=== PATIENT | female | born 1995 | race Caucasian/White ===

== ENCOUNTER 2017-05-31 00:02 | Outpatient (CLI) | payer OTHER ==
[~2017-05-31] VITALS: Ht 165.1 cm; Wt 76.2 kg
[~2017-05-31 00:02] MED LIST: HYDR-3419 PO
[2017-05-31] MEDS ORDERED: PRENTAB26 PO (01:51)
[2017-05-31] MEDS ORDERED: SERT50TA PO (01:51)
[2017-05-31 01:53] VITALS: Ht 165.1 cm; Wt 76.2 kg
--- NOTE | 2017-06-03 12:33 | EDITING REQUIRED CODING QUERY ---
DIAGNOSIS NEEDED To promote full compliance with coding requirements relating to patient care, physician participation is requested in all cases of professional fee coder uncertainty. Please assist us with the question(s) below: Coding Question: The patient received care in labor and delivery on 05/31/17 as noted within the record. Please document the diagnosis that is being addressed by the medication/treatment. Provider Response: DIAGNOSIS: Labor check WEEKS OF GESTATION: 37 weeks Thank you for your assistance, Roz Hubbard - Sales Promotion Coordinator
[2017-06-30] MEDS ORDERED: NIFE10CA20 PO (16:55)
[2017-07-09] MEDS ORDERED: PRC10 PO (07:23)
== END 2017-05-31 00:40 | disposition home or self-care (01) ==
LOC: C.OPB 00:02 → C.LD 00:02 → C.OPB 00:40
PROVIDERS: ATTEND Obstetrics & Gynecology
DX: Z34.83 Encounter for supervision of other normal pregnancy, third trimester (principal); Z3A.37 37 weeks gestation of pregnancy

== ENCOUNTER 2017-06-30 14:00 | Outpatient (CLI) | payer OTHER ==
[~2017-06-30] VITALS: Ht 165.1 cm; Wt 75.0 kg
[~2017-06-30 14:00] MED LIST changes: -HYDR-3419 PO; +PRENTAB26 PO; +SERT50TA PO
[2017-06-30] MEDS ORDERED: NURSING VERBAL MED ORDER ONE ×2 (14:45→16:15)
[2017-06-30] MEDS ORDERED: TERBUTALINE SULFATE 1 MG/ML VIAL ONE (14:47)
[2017-06-30] MEDS ORDERED: LACTATED RINGER'S 1000ML 1,000 ML IV SCH (15:15)
[2017-06-30] MEDS ORDERED: LACTATED RINGER'S 1000ML 500 ML IV SCH (15:15)
[2017-06-30] MEDS ORDERED: NIFEdipine 10 MG CAP PO STA (15:58)
[2017-06-30] MEDS ORDERED: TERBUTALINE SULFATE 1 MG/ML VIAL SQ PRN (16:00)
--- NOTE | 2017-06-30 16:53 | Progress Note ---
Progress Note Date of Service Jun 30, 2017. Progress Note 21 yo Multiparous pt.@34.5 karol foster for PTl FHR; CAT1 Ctx 2-3mins VE; cl/No effacement/-3 Pt received IVF, turb and Procardia ctx completely resolved dsich home on Procardia
[2017-06-30] MEDS ORDERED: NIFE10CA20 PO ×2 (16:55)
--- NOTE | 2017-06-30 16:56 | Discharge Instructions ---
Discharge Instructions Date of Service Jun 30, 2017. Admission Reason for Admission: R/O Labor Discharge Discharge Diagnosis / Problem: labor Discharge Goals Goal(s): Continuing OB care Activity Recommendations Activity Limitations: as noted below ACTIVITY RECOMMENDATIONS: See Labor Sheet. SPECIAL CARE INSTRUCTIONS: Call Doctor if: * Regular contractions every 5 minutes or greater than contractions in one hour. * Bleeding * Water breaks or is leaking * Decreased movement * Fever >100.4 degrees F * Pain not relieved by routine measures or pain medication ordered. FOLLOW UP VISIT: Return to Labor and Delivery on for /call for appointment time . Follow-up Visit with: When: . Current Hospital Diet Patient's current hospital diet: Discharge Diet Recommended Diet: Regular Diet Pending Studies Studies pending at discharge: no Medical Emergencies . Who to Call and When: Medical Emergencies: If at any time you feel your situation is an emergency, please call 911 immediately. . Non-Emergent Contact Non-Emergency issues call your: Specialist . . "Provider Documentation" section prepared by Ken Vaca. . VTE Core Measure Inpt VTE Proph given/why not?: Treatment not indicated
[2017-06-30 17:29] VITALS: Ht 165.1 cm; Wt 75.0 kg
[2017-07-09] MEDS ORDERED: PRC10 PO (07:23)
== END 2017-06-30 17:33 | disposition home or self-care (01) ==
LOC: C.OPB 14:00 → C.LD 14:00 → C.OPB 17:33
PROVIDERS: ATTEND Obstetrics & Gynecology
DX: O60.03 Preterm labor without delivery, third trimester (principal); Z3A.34 34 weeks gestation of pregnancy

== ENCOUNTER 2017-07-06 01:53 | Outpatient (CLI) | payer OTHER ==
[~2017-07-06] VITALS: Ht 165.1 cm; Wt 78.5 kg
[~2017-07-06 01:53] MED LIST changes: +NIFE10CA20 PO
[2017-07-06] MEDS ORDERED: ONDANSETRON INJ 2 MG/ML 2 ML VIAL IV PRN ×2 (02:15→02:30)
[2017-07-06] MEDS ORDERED: LACTATED RINGER'S 1000ML 1,000 ML IV SCH (02:15)
[2017-07-06] MEDS ORDERED: LACTATED RINGER'S 1000ML 500 ML IV ONE (02:15)
[2017-07-06] MEDS ORDERED: ACETAMINOPHEN 325 MG TAB PO PRN (02:15)
[2017-07-06] MEDS: TERBUTALINE SULFATE 1 MG/ML VIAL ONE ×2 (02:21→02:24)
[2017-07-06] MEDS: TERBUTALINE SULFATE 1 MG/ML VIAL SQ PRN ×3 (02:26→04:05)
[2017-07-06] MEDS ORDERED: BUTORPHANOL TARTRATE 1 MG/ML VIAL IV PRN (02:30)
[2017-07-06 02:45] LABS: BASO % 0.1 %; BASO ABS # 0.01 K/uL (0-0.2); EOS % 0.6 %; EOS ABS # 0.07 K/uL (0-0.5); HEMATOCRIT 32.5 % (37-47); HEMOGLOBIN 11.2 g/dL (12.0-16.0); IG# 0.09 K/uL (0.00-0.02); LYMPH % 17.7 %; LYMPH ABS # 2.12 K/uL (1.2-3.4); MEAN CELL VOLUME 95.9 fL (80-100); MEAN CORPUSCULAR HGB CONC 34.5 g/dl (32-36); MEAN PLATELET VOLUME 10.2 fL (7.4-10.4); MONO % 8.9 %; MONO ABS # 1.07 K/uL (0.11-0.59); NEUT % 71.9 %; NEUT ABS # 8.64 K/uL (1.4-6.5); PLATELET COUNT 140 K/uL (130-400); RED CELL DISTRIBUTION WIDTH CV 13.6 % (11.5-14.5); RED CELL DISTRIBUTION WIDTH SD 47.1 fL (36.4-46.3)
[2017-07-06] MEDS ORDERED: NIFEdipine 10 MG CAP PO SCH (04:00)
[2017-07-06 05:45] VITALS: Ht 165.1 cm; Wt 78.5 kg
[2017-07-07] MEDS ORDERED: MAGN400T6 PO (17:39)
[2017-07-07] MEDS ORDERED: DIPH25CA65 PO (17:40)
== END 2017-07-06 07:06 | disposition home or self-care (01) ==
LOC: C.LD 01:53 → C.OPB 01:53
PROVIDERS: ATTEND Obstetrics & Gynecology
DX: O62.9 Abnormality of forces of labor, unspecified (principal); Z3A.00 Weeks of gestation of pregnancy not specified

== ENCOUNTER 2017-07-06 18:57 | Outpatient (CLI) | payer OTHER ==
--- NOTE | 2017-07-06 20:58 | Progress Note ---
Progress Note Date of Service Jul 06, 2017. Progress Note 21 F P2002 at 35.6 weeks seen in L&D for contractions. she was seen previously and has not changed her cervix. Cervix 1-/-3/vertex/posterior/ firm. FHT Cat 1. Will discharge to home not in labor. Advised to stop smoking. Follow up in office,
[2017-07-07] MEDS ORDERED: MAGN400T6 PO (17:39)
[2017-07-07] MEDS ORDERED: DIPH25CA65 PO (17:40)
[2017-07-09] MEDS ORDERED: PRC10 PO (07:23)
== END 2017-07-06 21:17 | disposition home or self-care (01) ==
LOC: C.OPB 18:57 → C.LD 18:57 → C.OPB 21:17
PROVIDERS: ATTEND Obstetrics & Gynecology
DX: O62.9 Abnormality of forces of labor, unspecified (principal); Z3A.35 35 weeks gestation of pregnancy

== ENCOUNTER 2017-07-07 14:58 | Outpatient (CLI) | payer OTHER ==
[2017-07-07] MEDS ORDERED: BUTORPHANOL TARTRATE 1 MG/ML VIAL IV PRN (15:15)
[2017-07-07] MEDS ORDERED: TERBUTALINE SULFATE 1 MG/ML VIAL SQ PRN (15:15)
[2017-07-07] MEDS ORDERED: ONDANSETRON INJ 2 MG/ML 2 ML VIAL IV PRN (15:15)
[2017-07-07] MEDS ORDERED: LACTATED RINGER'S 1000ML 1,000 ML IV SCH (15:30)
[2017-07-07] MEDS ORDERED: LACTATED RINGER'S 1000ML 500 ML IV ONE (15:45)
[2017-07-07] MEDS ORDERED: MAGN400T6 PO (17:39)
[2017-07-07] MEDS ORDERED: DIPH25CA65 PO (17:40)
[2017-07-09] MEDS ORDERED: PRC10 PO (07:23)
== END 2017-07-07 17:55 | disposition home or self-care (01) ==
LOC: C.LD 14:58 → C.OPB 14:58
PROVIDERS: ATTEND Obstetrics & Gynecology
DX: O62.9 Abnormality of forces of labor, unspecified (principal); Z3A.00 Weeks of gestation of pregnancy not specified

== ENCOUNTER 2017-07-08 19:25 | Observation (INO) | payer OTHER ==
[~2017-07-08 19:25] MED LIST changes: +DIPH25CA65 PO; +MAGN400T6 PO; -NIFE10CA20 PO
[2017-07-08] MEDS ORDERED: LACTATED RINGER'S 1000ML 500 ML IV ONE (19:54)
[2017-07-08] MEDS ORDERED: MoRPHine SULFATE 10 MG/ML CARP/VIAL SC STA (19:54)
[2017-07-08] MEDS ORDERED: NIFEdipine 10 MG CAP PO STA (19:54)
[2017-07-08] MEDS ORDERED: ONDANSETRON INJ 2 MG/ML 2 ML VIAL IV PRN (20:00)
[2017-07-08] MEDS ORDERED: PROMETHAZINE HCL INJ 25 MG in SODIUM CHLORIDE 0.9% 50ML 50 ML IV PRN (20:00)
[2017-07-08] MEDS ORDERED: IV FLUIDS COMPLETED PRN (21:00)
[2017-07-08] MEDS: LACTATED RINGER'S 1000ML 1,000 ML IV SCH (23:27)
[2017-07-08] MEDS: NIFEdipine 10 MG CAP PO SCH (23:30)
[2017-07-08] MEDS ORDERED: MoRPHine SULFATE 4 MG/ML 1 ML CARP\\VIAL SC PRN (23:59)
[2017-07-09] MEDS: NIFEdipine 10 MG CAP PO SCH (03:32)
[2017-07-09] MEDS: LACTATED RINGER'S 1000ML 1,000 ML IV SCH (06:17)
[2017-07-09] MEDS ORDERED: PRC10 PO (07:23)
--- NOTE | 2017-07-09 07:24 | Discharge Instructions ---
Discharge Instructions Date of Service Jul 09, 2017. Admission Reason for Admission: Check Labor Discharge Discharge Diagnosis / Problem: contractions, back pain Discharge Goals Goal(s): Continuing OB care Activity Recommendations Activity Limitations: as noted below SPECIAL CARE INSTRUCTIONS: Call Doctor if: * Regular contractions every 5 minutes or greater than contractions in one hour. * Bleeding * Water breaks or is leaking * Decreased movement * Fever >100.4 degrees F * Pain not relieved by routine measures or pain medication ordered. FOLLOW UP VISIT: Return to Labor and Delivery on for /call for appointment time . Follow-up Visit with: office 07/15/17 When: . Current Hospital Diet Patient's current hospital diet: Clear Liquid Diet Discharge Diet Recommended Diet: Regular Diet Pending Studies Studies pending at discharge: no Medical Emergencies . Who to Call and When: Medical Emergencies: If at any time you feel your situation is an emergency, please call 911 immediately. . Non-Emergent Contact Non-Emergency issues call your: Specialist Call Non-Emergent contact if: temperature is above 100.5, your pain is not controlled, your pain is worsening, your pain is unusual for you . . "Provider Documentation" section prepared by Yarelis Armendariz. . VTE Core Measure Inpt VTE Proph given/why not?: Treatment not indicated
== END 2017-07-09 08:12 | disposition home or self-care (01) ==
LOC: C.LD 19:25 → C.OPB 19:25 → C.LD 19:57
PROVIDERS: ADMIT Obstetrics & Gynecology; ATTEND Obstetrics & Gynecology
DX: O26.893 Other specified pregnancy related conditions, third trimester (principal); M54.5 Low back pain; Z3A.36 36 weeks gestation of pregnancy

== ENCOUNTER 2017-07-20 00:11 | Outpatient (CLI) | payer OTHER ==
[~2017-07-20] VITALS: Ht 165.1 cm; Wt 79.5 kg
[~2017-07-20 00:11] MED LIST changes: +HYDR-3419 PO; +NIFE10CA20 PO; +PRC10 PO
[2017-07-20 00:34] VITALS: Ht 165.1 cm; Wt 79.5 kg
--- NOTE | 2017-07-24 10:28 | EDITING REQUIRED CODING QUERY ---
DIAGNOSIS NEEDED To promote full compliance with coding requirements relating to patient care, physician participation is requested in all cases of air carrier inspector uncertainty. Please assist us with the question(s) below: Coding Question: The patient received care in labor and delivery on 07/20/17 as noted within the record. Please document the diagnosis that is being addressed by the medication/treatment. Provider Response: DIAGNOSIS: Labor check WEEKS GESTATION: 37k gestation Thank you for your assistance, Roz Hubbard - Informatica Developer
== END 2017-07-20 03:35 | disposition home or self-care (01) ==
LOC: C.LD 00:11 → C.OPB 00:11
PROVIDERS: ATTEND Obstetrics & Gynecology
DX: Z34.83 Encounter for supervision of other normal pregnancy, third trimester (principal); Z3A.37 37 weeks gestation of pregnancy

== ENCOUNTER 2017-08-03 20:32 | Outpatient (CLI) | payer OTHER ==
[~2017-08-03] VITALS: Ht 165.1 cm; Wt 80.5 kg
[~2017-08-03 20:32] MED LIST changes: -HYDR-3419 PO; -NIFE10CA20 PO; -PRC10 PO
--- NOTE | 2017-08-03 20:58 | Progress Note ---
Progress Note Date of Service Aug 03, 2017. Progress Note Outpatient Note 21 F P2012 at 39.5 weeks here to rule out labor. She lost her mucous plug today and has been having contractions. Cervix is 2-3/80/-2/vertex/posterior. FHT Cat 1. GBS is negative. Will observe for signs of labor.
[2017-08-03 21:06] VITALS: Ht 165.1 cm; Wt 80.5 kg
--- NOTE | 2017-08-03 23:48 | Progress Note ---
Progress Note Date of Service Aug 03, 2017. Progress Note cervix unchanged at 2-/-2 T Cat 1 offered to send her home but she lives in [place] and woulld like to stay and continue to walk.
== END 2017-08-04 00:10 | disposition home or self-care (01) ==
LOC: C.LD 20:32 → C.OPB 20:32
PROVIDERS: ATTEND Obstetrics & Gynecology
DX: O62.9 Abnormality of forces of labor, unspecified (principal); Z3A.39 39 weeks gestation of pregnancy

== ENCOUNTER 2017-08-04 18:55 | Inpatient (IN) | payer OTHER ==
[~2017-08-04] VITALS: Ht 165.1 cm; Wt 80.5 kg
[2017-08-04 19:17] VITALS: Ht 165.1 cm; Wt 80.5 kg
[2017-08-04] MEDS ORDERED: LACTATED RINGER'S 1000ML 1,000 ML IV PRN (19:47)
[2017-08-04] MEDS ORDERED: LACTATED RINGER'S 1000ML 500 ML IV PRN (19:50)
[2017-08-04] MEDS ORDERED: OXYTOCIN 30 UNITS/500ML NSS IV PRN (20:00)
[2017-08-04] MEDS ORDERED: ACETAMINOPHEN 500 MG TAB PO STA (20:06)
[2017-08-04] MEDS ORDERED: ACETAMINOPHEN 500 MG TAB PO ONE (20:13)
[2017-08-04 20:17] LABS: HEMATOCRIT 35.5 % (37-47); HEMOGLOBIN 12.5 g/dL (12.0-16.0); MEAN CELL VOLUME 92.7 fL (80-100); MEAN CORPUSCULAR HEMOGLOBIN 32.6 pg (25-34); MEAN CORPUSCULAR HGB CONC 35.2 g/dl (32-36); MEAN PLATELET VOLUME 10.3 fL (7.4-10.4); PLATELET COUNT 127 K/uL (130-400); RED CELL DISTRIBUTION WIDTH CV 14.1 % (11.5-14.5); RED CELL DISTRIBUTION WIDTH SD 47.2 fL (36.4-46.3); WHITE BLOOD COUNT 11.94 K/uL (4.8-10.8)
--- NOTE | 2017-08-04 20:21 | HISTORY & PHYSICAL EXAMINATION ---
DATE OF ADMISSION: 08/04/2017 HISTORY OF PRESENT ILLNESS: The patient is a 21-year-old G4, P2 due date 08/05/2017 making her 39 weeks and 1 day. The patient's has been unremarkable, presents to labor and delivery with contractions. The patient has made numerous visits to labor and delivery in the last 3 weeks for labor checks. She continues to be 2 cm. She was seen this morning and sent home after a labor check. no shortness of breath, no chills, no fever. The patient appeared quite upset and depressed. She is upset because she continues to be 2 cm and is frustrated and wish to be induced. heart rate is category 1. Pelvic exam done by nurse shows she is 2 cm, 80% and -2 station. LABS: Blood type is O positive, antibody negative, rubella immune, GBS negative. PAST MEDICAL HISTORY: The patient has asthma, depression, anxiety, ADHD, posttraumatic stress disorder, bipolar disorder and migraines. PAST SURGICAL HISTORY: The patient has had hysteroscopy and laparoscopy. RECYCLING ASSISTANT HISTORY: The patient has had 2 vaginal deliveries. Deliveries were in 2014 and 2016. Infant weighed about 8 pounds in both deliveries. FAMILY HISTORY: Noncontributory. SOCIAL HISTORY: The patient has history of drug abuse but denies tobacco, drug or alcohol use in this . ALLERGIES: THE PATIENT IS ALLERGIC TO AMOXICILLIN, DIAGNOSTIC IODINE AND PENICILLIN. PHYSICAL EXAMINATION: GENERAL: Well-developed, well-nourished white female in moderate discomfort. HEART: S1, S2, regular rhythm and rate. LUNGS: Clear to auscultation bilaterally. ABDOMEN: Gravid. heart rate is category 1. PELVIC: By nurse shows she is 2, 80, and -2. EXTREMITIES: No cyanosis, clubbing or edema. ASSESSMENT AND PLAN: A 21-year-old G4, P2 at 39 weeks and 6 days. The patient has had a prolonged latent phase of labor. Decision was therefore made to admit patient and augment labor. LUCAS
[2017-08-04] MEDS ORDERED: DINOPROSTONE 10 MG INSERT PV ONE (20:30)
[2017-08-04] MEDS: LACTATED RINGER'S 1000ML 1,000 ML IV SCH (22:28)
[2017-08-05] MEDS: LACTATED RINGER'S 1000ML 1,000 ML IV SCH ×2 (03:52→07:52)
[2017-08-05] MEDS ORDERED: BUPIVACAINE 0.25% 30 ML VIAL ONE (03:56)
[2017-08-05] MEDS ORDERED: EpHEDrine SULFATE INJ 50 MG/ML AMP ONE (03:56)
[2017-08-05] MEDS ORDERED: FENTANYL CITRATE INJ 50 MCG/1 ML 2 ML VIAL ONE (03:57)
[2017-08-05] MEDS ORDERED: FENTANYL 2MCG/ML ROPIV 1.25MG/ML 100ML BAG EPI ONE (03:57)
[2017-08-05] MEDS ORDERED: LACTATED RINGER'S 1000ML 500 ML IV PRN (04:44)
[2017-08-05] MEDS ORDERED: NALOXONE HCL INJ 1 MG in SODIUM CHLORIDE 0.9% 1000ML 1,000 ML IV PRN ×4 (04:44)
[2017-08-05] MEDS ORDERED: ONDANSETRON INJ 2 MG/ML 2 ML VIAL IV PRN (04:45)
[2017-08-05] MEDS ORDERED: FENTANYL 2MCG/ML ROPIV 1.25MG/ML 100ML BAG EPI PRN (04:45)
[2017-08-05] MEDS ORDERED: NALOXONE HCL INJ 0.4 MG/1 ML VIAL/CARP IV PRN (04:45)
[2017-08-05] MEDS ORDERED: DiphenhydrAMINE HCL 50 MG/ML VIAL IV PRN (04:45)
[2017-08-05] MEDS ORDERED: EpHEDrine SULFATE INJ 50 MG/ML AMP IV PRN (04:45)
[2017-08-05] MEDS ORDERED: PROMETHAZINE HCL INJ 25 MG in SODIUM CHLORIDE 0.9% 50ML 50 ML IV PRN (04:45)
[2017-08-05] MEDS ORDERED: NALBUPHINE HCL INJ 10 MG/ML AMP IV PRN (04:45)
[2017-08-05] MEDS ORDERED: LACTATED RINGER'S 1000ML 1,000 ML IV SCH (11:21)
--- NOTE | 2017-08-05 11:26 | Vaginal Delivery Summary ---
Vaginal Delivery Summary Delivery Note live female over intact perineum RUFINO with loose nuchal cord reduced on perineum with Apgars 8/10 weight pending. Delayed cord clamping followed by cord blood and spontaneous delivery of placenta. No tears. EBL 200 ml. Final sponge and instrument count are correct. Mom and baby stable.
[2017-08-05] MEDS ORDERED: DIPHTHERIA/TETANUS/PERTUSSIS 0.5 ML SYR/VIAL IM. ONE (11:30)
[2017-08-05] MEDS ORDERED: LANOLIN OINT EXT PRN (11:30)
[2017-08-05] MEDS ORDERED: HYDROCORTISONE ACETATE 25 MG SUPP PR PRN (11:30)
[2017-08-05] MEDS ORDERED: SUPERCREAM 0.870 % 15GM JAR EXT PRN (11:30)
[2017-08-05] MEDS ORDERED: MEASLES, MUMPS & RUBELLA VIRUS VIAL SQ. ONE (11:30)
[2017-08-05] MEDS ORDERED: OXYTOCIN 30 UNITS/500ML NSS IV PRN (11:30)
[2017-08-05] MEDS ORDERED: BENZOCAINE 20% AER SPR 82.5 GM CAN EXT PRN (11:30)
--- NOTE | 2017-08-05 12:06 | Anesthesia Procedure Note ---
Anesthesia Epidural Removal Nt Date & Time Aug 05, 2017 at 12:06 Vital Signs Pain Intensity: 0.0 Notes Mental Status: alert / awake / arousable, participated in evaluation Nausea / Vomiting: adequately controlled Pain: adequately controlled Airway Patency, RR, SpO2: stable & adequate BP & HR: stable & adequate Hydration State: stable & adequate Neuraxial Anesthesia: was administered Anesthetic Complications: no major complications apparent, pt satisfied with anesthetic care Epidural: removed without complications, with tip intact
[2017-08-05 15:30] VITALS: BP 114/70; PULSE 62; TEMP 36.4
[2017-08-05] MEDS: IBUPROFEN 600 MG TAB PO PRN ×2 (16:57→20:48)
[2017-08-05 19:30] VITALS: BP 117/71; PULSE 70; TEMP 36.5
[2017-08-05] MEDS ORDERED: NURSING VERBAL MED ORDER ONE ×2 (19:45→20:00)
[2017-08-05] MEDS ORDERED: SERTRALINE HCL 50 MG TAB PO SCH (20:00)
[2017-08-05] MEDS ORDERED: MAGNESIUM OXIDE 400 MG TAB PO SCH (20:00)
[2017-08-05] MEDS: DOCUSATE SODIUM 100 MG CAP PO SCH (20:47)
[2017-08-05] MEDS: ACETAMINOPHEN 325 MG TAB PO PRN (22:13)
[2017-08-05 23:35] VITALS: BP 107/70; PULSE 63; TEMP 36.3
[2017-08-06 04:15] VITALS: BP 101/56; PULSE 62; TEMP 36.6
[2017-08-06 06:46] LABS: HEMATOCRIT 30.6 % (37-47); HEMOGLOBIN 10.6 g/dL (12.0-16.0)
[2017-08-06] MEDS: DOCUSATE SODIUM 100 MG CAP PO SCH (07:56)
[2017-08-06] MEDS: ACETAMINOPHEN 325 MG TAB PO PRN ×2 (08:00→19:55)
[2017-08-06] MEDS ORDERED: FERROUS SULFATE 325 MG TAB PO SCH (08:00)
[2017-08-06] MEDS ORDERED: PRENATAL VITAMIN TAB PO SCH (08:00)
[2017-08-06 08:20] VITALS: BP 120/75; PULSE 64; TEMP 36.5
--- NOTE | 2017-08-06 08:44 | OB/GYN Progress Note ---
[facility] Progress Note Date of Service Aug 06, 2017. Subjective conversation w/ patient Ambulation: ambulating normally Voiding: no voiding problems Passing Gas: Yes Diet Tolerance: Regular Diet Lochia: Moderate Feeding Type: Breast Feeding Review of Systems Constitutional: No fever, No chills, No sweats, No weight loss, No weakness, No fatigue, No problem reported Respiratory: No cough, No sputum, No wheezing, No shortness of breath, No dyspnea on exertion, No dyspnea at rest, No hemoptysis, No problem reported Cardiac: No chest pain, No orthopnea, No PND, No edema, No claudication, No palpitations, No problem reported Breast: No see HPI, No breast lump, No change in shape, No nipple discharge, No breast pain, No problem reported Abdomen: No pain, No nausea, No vomiting, No diarrhea, No constipation, No GI bleeding, No problem reported Female : No see HPI, No dysuria, No urinary frequency, No hematuria, No incontinence, No abnormal vaginal bleeding, No vaginal discharge, No problem reported Objective Vital Signs Date Time Temp Pulse Resp B/P (MAP) Pulse Ox O2 Delivery O2 Flow Rate FiO2 08/06/17 08:20 36.5 64 20 120/75 (90) Room Air 08/06/17 04:15 36.6 62 16 101/56 (71) Room Air 08/05/17 23:35 36.3 63 18 107/70 (82) Room Air 08/05/17 23:35 Room Air 08/05/17 19:30 36.5 70 20 117/71 (86) Room Air 08/05/17 15:30 Room Air 08/05/17 15:30 36.4 62 20 114/70 (85) Room Air Physical Exam General Appearance: WELL-APPEARING, WD/WN, NO APPARENT DISTRESS Respiratory/Chest: chest non-tender, lungs clear, normal breath sounds Cardiovascular: regular rate, rhythm, no edema, no gallop Abdomen: normal bowel sounds, non tender, soft Fundus: Firm Extremities: normal range of motion, non-tender, normal inspection Laboratory Results Last 24 Hours Test 08/06/17 06:28 Hemoglobin 10.6 g/dL Hematocrit 30.6 % Assessment and Plan Day Number: 1 Continue Routine Care: PPD #1 pt doing well No complaints anticipate disch tomorrow
[2017-08-06 16:00] VITALS: BP 116/72; PULSE 72; TEMP 36.5; O2SAT 100
[2017-08-06] MEDS: IBUPROFEN 600 MG TAB PO PRN (16:31)
--- NOTE | 2017-08-06 17:47 | Discharge Instructions ---
Discharge Instructions Date of Service Aug 06, 2017. Admission Reason for Admission: R/O Labor Discharge Discharge Diagnosis / Problem: Discharge Goals Goal(s): Routine recovery after delivery Activity Recommendations Activity Limitations: as noted below ACTIVITY RECOMMENDATIONS: * Gradual return to full activity over the next 2-3 weeks. * No lifting - nothing heavier than baby over the next 2-3 weeks. * Do not engage in vigorous exercise, sexual activity or sports until cleared by your physician. * Do not drive or operate any motorized equipment until cleared by your physician. * You may shower/bathe daily. BREAST CARE: If you are not breast feeding: * Wear a supportive bra 24 hours a day for one to two weeks. * Avoid stimulating your breasts and nipples as much as possible during the first few weeks after delivery. * When taking a shower, have the warm water hit your back, not breasts. * When your breasts feel full, apply ice packs. Usually three to four times a day helps ease the discomfort. * Take a mild pain medication (Tylenol/Motrin) when you are uncomfortable. If breast feeding: * Use breast milk to lubricate nipples. Lansinoh cream may be used for sore nipples. You do not need to remove cream prior to breast feeding. If using a different brand of cream, check the label for directions regarding removal of cream prior to nursing. * Wear a supportive bra. * If having problems with breasts or breast feeding, call a account consultant or your health care provider. EPISIOTOMY CARE: After delivery, if you have an episiotomy (stitches), the following steps will ease discomfort and aid healing. * For the first 24 hours after delivery, place ice packs next to your episiotomy to help reduce swelling. * After the first 24 hour-period, sitz baths, either portable or in the tub, are suggested. A shower with a shower arm sprayed over the episiotomy may be comforting. * Carmelina care should be done after each voiding and bowel movement. Squirt warm water from a plastic bottle over the perineum (region of the body between the anus and urinary opening) and pat dry. * Use Dermoplast to ease discomfort. Shake container. Platinum directly over the episiotomy. * Place a Tucks on a clean sanitary pad next to your episiotomy. OVER THE COUNTER MEDICATION: * For discomfort or pain, you may use Acetaminophen (Tylenol), Ibuprofen (Advil ), or Naproxen (Aleve) following the package directions. * For constipation you may use Colace following the package directions. SPECIAL CARE INSTRUCTIONS: When you are discharged from the hospital, it is important for you to follow the instructions listed below: * During the first week at home, you should be able to care for yourself and your baby. In addition, the usual light household activities are encouraged. * Limit your activities to the way you feel. Do not try to clean the house or move furniture. Be sensible. * If you actively engage in sports and have done so up until the time of your delivery, you may resume these activities as soon as you feel able. This may take up to one month or even longer. Use good judgment. * Continue to take your vitamins for at least six weeks after the of your baby. * Your diet need not be limited unless you were on a special diet before your delivery. Breast-feeding mothers need around 2500 calories per day and at least 64-80 ounces of fluid per day (8 to 10 glasses). * You should eat foods from the four major food groups. Crash diets or fad diets are to be avoided. Eating lean meats, fresh fruits and vegetables, low-fat dairy products, high fiber foods and a regular exercise program, will help you get back to your pre- weight without putting your health at risk. * Constipation is sometimes a problem after delivery. Take a mild laxative as needed. If breast feeding, Milk of Magnesia is acceptable to use. You may use a suppository or Fleets enema if no episiotomy. * A daily shower or tub bath is suggested. Be sure to thoroughly and gently dry the perineum. * A bloody vaginal discharge will usually continue until around four weeks post . A small amount of bleeding may continue for as long as six weeks. Vaginal discharge changes from the bright red bleeding after delivery to pink then brownish and finally yellowish-pink before becoming white and disappearing. * Bleeding may increase with activity. Your first period may come in 4-8 weeks. If you are breast feeding, your period may be delayed even longer. * Elbe (sex) can begin whenever both you and your partner feel comfortable and do not have any form of genital infection. It is recommended that you wait until after your return appointment and discuss with your physician. If you have questions, please talk to your health care practitioner. A condom should be used to prevent infection and . * Foreplay, gentle intercourse and lubrication is very important the first several times to prevent pain. A water-based lubricant such as K-Y jelly or Astroglide may be used. * Tampons may be used six weeks after delivery. * Douching should be avoided for 6 weeks after delivery. * If you have RH negative blood and your baby is RH positive, you will receive RHOGAM by injection prior to discharge. The nurse will give you a card to keep with you that has the date and place that you received RHOGAM after delivery. * During your care, you had a Rubella screen done to check for the presence of rubella antibodies in your blood. If your test was negative, you will receive a Rubella vaccine prior to discharge. This vaccine may cause a fever, soreness at the injection site and flu-like symptoms. If these symptoms persist, notify your health care practitioner. is not advised for three months after a Rubella vaccine. There is a higher chance of having a baby with defects if conceived within three months of getting the vaccine. * If you were discharged 24 hours from delivery or before 48 hours: Visiting nurses will come to your home 48 hours after discharge to assess you and your baby. The visiting nurse will meet with you while you are in the hospital to arrange a time and get directions to your home. * Verbalizes understanding of car seat law as reviewed with patient nursing. * Car Seat hand-out given and reviewed with patient by nursing. * Shaken baby information reviewed with patient by nursing. Call you doctor if: * Heavy bleeding (saturating several pads an hour) or passing clots the size of your fist. * A fever >101 degrees F (38.3 degrees C) on two occasions four hours apart and/or chills. * Unusual pain in the pelvic or vaginal areas. * "Baby Blues" lasting longer than two weeks. If you have any questions or concerns, call your health care practitioner at . FOLLOW-UP VISIT: * Please call the office at to schedule a 6 week examination. It is important you keep this appointment. * It is important for you to make arrangements for either yearly or twice yearly check-ups thereafter. . Current Hospital Diet Patient's current hospital diet: Regular OB Diet Discharge Diet Recommended Diet: Regular Diet Pending Studies Studies pending at discharge: no Medical Emergencies . Who to Call and When: Medical Emergencies: If at any time you feel your situation is an emergency, please call 911 immediately. . Non-Emergent Contact Non-Emergency issues call your: Specialist . . "Provider Documentation" section prepared by Ken Vaca. .
[2017-08-06] MEDS ORDERED: MEASLES, MUMPS & RUBELLA VIRUS VIAL SQ. ONE (19:35)
[2017-08-06] MEDS ORDERED: BISACODYL 5 MG TABEC PO SCH (20:00)
[2017-08-07] MEDS ORDERED: BISACODYL 10 MG SUPP PR PRN (07:00)
== END 2017-08-06 20:20 | disposition home or self-care (01) | DRG 775 ==
LOC: C.LD 18:55 → C.OPB 18:55 → C.LD 19:50 → C.OBG 08-05 14:23
PROVIDERS: ADMIT Obstetrics & Gynecology; ATTEND Obstetrics & Gynecology
PROC: 10E0XZZ Delivery of Products of Conception, External Approach (ICD-10-PCS; principal; 2017-08-05)
PROC: 3E033VJ Introduction of Other Hormone into Peripheral Vein, Percutaneous Approach (ICD-10-PCS; 2017-08-05)
DX: O63.0 Prolonged first stage (of labor) (principal); O69.81X0 Labor and delivery complicated by cord around neck, without compression, not applicable or unspecified; Z3A.40 40 weeks gestation of pregnancy; Z37.0 Single live birth; Z88.0 Allergy status to penicillin